=== PATIENT | female | born 1980 | race Asian ===

== ENCOUNTER 2017-12-14 15:38 | Inpatient (IN) | payer OTHER ==
[2017-12-14] MEDS ORDERED: METHYLERGONOVINE 0.2 MG INJ IM (16:30)
[2017-12-14] MEDS ORDERED: CARBOPROST 250 MCG INJ IM (16:30)
[2017-12-14] MEDS ORDERED: BUTORPHANOL 2 MG INJ IV (16:30)
[2017-12-14] MEDS ORDERED: LIDOCAINE 1% (MPF) 30 ML INJ INJ (16:30)
[2017-12-14] MEDS ORDERED: OXYTOCIN 30 UNITS/LR 500 ML IV (16:30)
[2017-12-14] MEDS ORDERED: MISOPROSTOL 200 MCG TAB PR (16:30)
[2017-12-14 16:38] LABS: ADD MAN DIFF? NO
[2017-12-14 16:43] LABS: WHITE BLOOD COUNT 7.8 10^3/ul (4.8-10.8)
[2017-12-14 16:43] LABS: BASOPHIL # 0.1 10^3/ul (0.0-0.1); BASOPHILS % 0.8 % (0.0-2.0); EOSINOPHILS # 0.1 10^3/ul (0.0-0.5); EOSINOPHILS % 1.4 % (0.0-7.0); HEMATOCRIT 37.1 % (37.0-47.0); HEMOGLOBIN 12.7 g/dl (12.0-16.0); IMMATURE GRANS #M 0.19 10^3/ul; IMMATURE GRANS % (M) 2.4 %; LYMPHOCYTES # 1.6 10^3/ul (0.8-2.9); LYMPHOCYTES % 20.5 % (15.0-51.0); MEAN CORPUSCULAR HEMOGLOBIN 29.3 pg (29.0-33.0); MEAN CORPUSCULAR HGB CONC 34.2 g/dl (32.0-37.0); MEAN CORPUSCULAR VOLUME 85.5 fl (82.0-101.0); MEAN PLATELET VOLUME 9.7 fl (7.4-10.4); MONOCYTES % 12.6 % (0.0-11.0); NEUTROPHIL # 4.8 10^3/ul (1.6-7.5); NEUTROPHILS % 62.3 % (39.0-77.0); PLATELET COUNT 313 10^3/UL (140-415); RED BLOOD COUNT 4.34 10^6/ul (4.20-5.40); RED CELL DISTRIBUTION WIDTH 12.6 % (11.5-14.5)
[2017-12-14 17:16] LABS: INR 0.92; PROTIME 12.4 Sec (11.9-14.9)
[2017-12-14 17:17] LABS: PARTIAL THROMBOPLASTIN TIME 29.8 Sec (25.0-35.0)
[2017-12-14 18:13] LABS: HEPATITIS B SURFACE ANTIGEN NEGATIVE (NEGATIVE)
[2017-12-14] MEDS: LACTATED RINGER'S 1,000 ML IV* ×2 (18:29→23:57)
[2017-12-14] MEDS: OXYTOCIN 30 UNITS/LR 500 ML IV ×3 (19:56→20:47)
[2017-12-14] MEDS: MINERAL OIL LIGHT 10 ML VIAL TOP (20:43)
[2017-12-14] MEDS: IBUPROFEN 600 MG TAB PO (21:12)
[2017-12-15] MEDS ORDERED: WITCH HAZEL/GLYCERIN PAD PR
[2017-12-15] MEDS ORDERED: DIBUCAINE 1% 30 GM OINT PR
[2017-12-15] MEDS ORDERED: CARBOPROST 250 MCG INJ IM
[2017-12-15] MEDS ORDERED: BENZOCAINE 20% 56 ML SPRAY TOP
[2017-12-15] MEDS ORDERED: ZOLPIDEM 5 MG TAB PO
[2017-12-15] MEDS ORDERED: HYDROCODONE/APAP (5/325) TAB PO ×2
[2017-12-15] MEDS ORDERED: METHYLERGONOVINE 0.2 MG INJ IM
[2017-12-15] MEDS ORDERED: OXYTOCIN 30 UNITS/LR 500 ML IV
[2017-12-15] MEDS ORDERED: MISOPROSTOL 200 MCG TAB PR
[2017-12-15] MEDS: LANOLIN 7 GM TUBE TOP (01:10)
[2017-12-15] MEDS: IBUPROFEN 600 MG TAB PO ×4 (05:38→18:14)
[2017-12-15] MEDS: LACTATED RINGER'S 1,000 ML IV* ×3 (06:45→21:38)
[2017-12-15 08:26] LABS: ADD MAN DIFF? NO
[2017-12-15 08:30] LABS: BASOPHIL # 0.1 10^3/ul (0.0-0.1); BASOPHILS % 0.8 % (0.0-2.0); EOSINOPHILS # 0.1 10^3/ul (0.0-0.5); EOSINOPHILS % 1.5 % (0.0-7.0); HEMATOCRIT 35.1 % (37.0-47.0); HEMOGLOBIN 11.9 g/dl (12.0-16.0); LYMPHOCYTES # 2.3 10^3/ul (0.8-2.9); LYMPHOCYTES % 26.2 % (15.0-51.0); MEAN CORPUSCULAR HGB CONC 33.9 g/dl (32.0-37.0); MEAN CORPUSCULAR VOLUME 85.4 fl (82.0-101.0); MEAN PLATELET VOLUME 9.4 fl (7.4-10.4); MONOCYTE # 1.2 10^3/ul (0.3-0.9); MONOCYTES % 13.3 % (0.0-11.0); NEUTROPHIL # 5.1 10^3/ul (1.6-7.5); NEUTROPHILS % 56.9 % (39.0-77.0); PLATELET COUNT 300 10^3/UL (140-415); RED BLOOD COUNT 4.11 10^6/ul (4.20-5.40); RED CELL DISTRIBUTION WIDTH 12.6 % (11.5-14.5)
[2017-12-15 08:30] LABS: WHITE BLOOD COUNT 8.9 10^3/ul (4.8-10.8)
[2017-12-15] MEDS: SENNA/DOCUSATE NA (8.6MG/50MG) TAB PO ×2 (09:24→21:00)
[2017-12-15] MEDS: MAGNESIUM HYDROXIDE 30ML CUP PO ×2 (09:24→21:00)
[2017-12-15 19:15] LABS: RAPID PLASMA REAGIN NONREACTIVE (NR)
[2017-12-16] MEDS: IBUPROFEN 600 MG TAB PO ×3 (00:34→11:30)
[2017-12-16] MEDS: LACTATED RINGER'S 1,000 ML IV* ×2 (06:25→15:57)
[2017-12-16] MEDS: SENNA/DOCUSATE NA (8.6MG/50MG) TAB PO (08:30)
[2017-12-16] MEDS: DIPHTH/TET/ACEL PERTUSS (ADULT) 0.5 ML VIAL IM* (08:33)
[2017-12-16] MEDS: VARICELLA VACCINE LIVE/PF 1,350 UNIT/0.5 ML ML SC* (08:33)
[2017-12-16] MEDS: MAGNESIUM HYDROXIDE 30ML CUP PO (08:33)
[2017-12-16] MEDS: MEASLES,MUMPS,RUBELLA VACCINE INJ SC* (08:33)
== END 2017-12-16 17:38 | disposition home or self-care (01) | DRG 775 ==
LOC: L-D 15:38 → PP1 22:16
PROVIDERS: Obstetrics & Gynecology
PROC: 10E0XZZ Delivery of Products of Conception, External Approach (ICD-10-PCS; principal; 2017-12-14 08:00)
PROC: 3E033VJ Introduction of Other Hormone into Peripheral Vein, Percutaneous Approach (ICD-10-PCS; 2017-12-14 08:00)
DX: O48.0 Post-term pregnancy (principal); Z3A.40 40 weeks gestation of pregnancy; O69.81X0 Labor and delivery complicated by cord around neck, without compression, not applicable or unspecified; Z37.0 Single live birth
CPT/HCPCS: 76815; 85025; 85610; 85730; 86592; 86850; 86900; 86901; 87340